=== PATIENT | male | born 1990 | race Caucasian/White ===

== ENCOUNTER 2020-01-09 18:11 | Emergency (ER) | payer BC, SELFPAY ==
[2020-01-09 18:22] VITALS: BP 131/79; PULSE 72; RESP 18; TEMP 36.2; O2SAT 97
--- NOTE | 2020-01-09 18:39 | ED.NAVMDI ---
HPI - Nausea/Vomiting/Diarrhea General Chief complaint: Nausea/Vomiting/Diarrhea Stated complaint: nausea, vomiting Source: patient Mode of arrival: ambulatory Limitations: no limitations History of Present Illness HPI Narrative: 29 y.o. has had nausea and vomiting since 5:30 AM today, vomiting at least x10. He feels antsy all over. He denies diarrhea, abdominal pain. He rarely drinks alcohol; had about 8 beers yesterday. Related Data Allergies Allergy/AdvReac Type Severity Reaction Status Date / Time No Known Allergies Allergy Verified 01/09/20 18:25 Review of Systems Constitutional: Constitutional: Denies chills and Denies fever(s) Cardiovascular: Cardiovascular: Denies chest pain Respiratory: Respiratory: Denies cough and Denies dyspnea Gastrointestinal: Gastrointestinal: Reports abdominal pain (some abd. discomfort after drinking large cup of water then vomiting. ) Genitourinary: Genitourinary: Denies dysuria Musculoskeletal: Musculoskeletal: Denies back pain Integumentary/Breasts: Skin/Breast: Denies rash [facility] Past Medical History Medical History (Updated 01/09/20 @ 19:31 by Bernard Dash MD) Patient denies significant medical history Social History Social History (Updated 01/09/20 @ 18:56 by Bernard Dash MD) Alcohol use details: occasional alcoholic beverage once a month. Exam Narrative: Exam Narrative: Walked in, upright Const: General: no acute distress and alert Orientation/consciousness: patient oriented x3 Eyes: Cornea: corneas normal Neck: Neck: no lymphadenopathy Chest: Chest palpation & inspection: normal inspection of the chest Resp: Auscultation: clear to auscultation bilaterally Cardio: Rate: regular rate Rhythm: regular rhythm GI: Inspection: non-distended GI Palp: Yes Soft to palpation and No Tenderness to palpation present (GI) Back/Spine/Pelvis: Back: no CVA tenderness Neuro: General: patient oriented x3 Psych: Appearance: grossly normal Mental Status: mental status grossly normal Course Course Emergency Course: After 1 liter of fluids nausea was gone, no longer felt antsy. Vital Signs Vital signs: Vital Signs Temperature 36.2 C L 01/09/20 18:22 Pulse Rate 72 01/09/20 18:22 Respiratory Rate 18 01/09/20 18:22 Blood Pressure 131/79 01/09/20 18:22 Pulse Oximetry 97 01/09/20 18:22 Temperature 36.2 C L 01/09/20 18:22 Pulse Rate 72 01/09/20 18:22 Respiratory Rate 18 01/09/20 18:22 Blood Pressure 153/78 H 01/09/20 19:43 Pulse Oximetry 97 01/09/20 18:22 MDM - Nausea/Vomiting/Diarrhea MDM Narrative Medical decision making narrative: Dehydration, appears to be alcohol ingestion. Minor elevation of WBC secondary to vomiting. Differential Diagnosis Differential diagnosis: Likely gastroenteritis, dehydration and other (hangover) Lab Data Attestation: I reviewed the patient's lab results. Result diagrams: 01/09/20 18:52 01/09/20 18:51 Labs: Lab Results 01/09/20 01/09/20 01/09/20 Range/Units 18:49 18:51 18:52 WBC 12.4 H (4.8-10.8) K/mm3 RBC 4.89 (4.70-6.10) M/mm3 Hgb 13.8 L (14.0-18.0) g/dL Hct 42.7 (40.0-54.0) % MCV 87.3 (78.0-102.0) fL MCH 28.2 (27.0-31.0) pg MCHC 32.3 (32.0-36.0) g/dL RDW 13.8 (11.6-14.4) % Plt Count 220 (150-420) K/mm3 MPV 11.2 H (8.7-11.0) fl Immature Gran % (Auto) 0.3 H (0.0-0.0) % Neut % (Auto) 87.1 H (50.0-70.0) % Lymph % (Auto) 8.8 L (18.0-42.0) % [place] % (Auto) 3.6 (2.0-11.0) % Eos % (Auto) 0.0 L (1.0-6.0) % Baso % (Auto) 0.2 (0.0-1.0) % Lymph # (Auto) 1.09 L (1.10-4.50) K/mm3 [place] # (Auto) 0.45 (0.10-0.90) K/mm3 Eos # (Auto) 0.00 L (0.02-0.50) K/mm3 Baso # (Auto) 0.02 (0.00-0.10) K/mm3 Abs Immat Gran (auto) 0.04 H (0.00-0.00) K/mm3 Absolute Neuts (auto) 10.8 H (1.7-7.2) K/mm3 Absolute Nucleated RBC 0.00 (0.00-0.00) K/mm3 Nucleated
[2020-01-09] MEDS: LACTATED RINGERS 1,000 ML 999 ML IV CONT (18:52)
[2020-01-09] MEDS: ONDANSETRON INJ 4 MG/2 ML VIAL IV PUSH (18:52)
[2020-01-09 18:57] LABS: Basophils Absolute Auto 0.02 K/mm3 (0.00-0.10); Basophils Percent Auto 0.2 % (0.0-1.0); Hematocrit 42.7 % (40.0-54.0); Hemoglobin 13.8 g/dL (14.0-18.0); Immature Granulocyte Absolute 0.04 K/mm3 (0.00-0.00); Immature Granulocyte Percent A 0.3 % (0.0-0.0); Lymphocytes Absolute Auto 1.09 K/mm3 (1.10-4.50); Lymphocytes Percent Auto 8.8 % (18.0-42.0); Mean Corpuscular HGB Conc 32.3 g/dL (32.0-36.0); Mean Corpuscular Hemoglobin 28.2 pg (27.0-31.0); Mean Corpuscular Volume 87.3 fL (78.0-102.0); Mean Platelet Volume 11.2 fl (8.7-11.0); Monocytes Absolute Auto 0.45 K/mm3 (0.10-0.90); Monocytes Percent Auto 3.6 % (2.0-11.0); Neutrophils Absolute Auto 10.8 K/mm3 (1.7-7.2); Neutrophils Percent Auto 87.1 % (50.0-70.0); Platelet Count Result 220 K/mm3 (150-420); Red Blood Count 4.89 M/mm3 (4.70-6.10); Red Cell Distribution Width 13.8 % (11.6-14.4); White Blood Count 12.4 K/mm3 (4.8-10.8)
[2020-01-09 18:59] LABS: Add Urine Microscopic? YES; Appearance Urine Sl Cloudy (Clear); Bilirubin Urine 1+ (Negative); Blood Urine Negative (Negative); Color Urine Yellow (Yellow); Glucose Urine UA Negative (Negative); Ketones Urine 1+ (Negative); Leukocyte Esterase Ur Negative (Negative); Nitrate Urine Negative (Negative); Protein Urine 1+ (Negative); Specific Grav Ur >= 1.030 (1.010-1.020); Urobilinogen Urine 0.2 mg/dL (0.2-1.0)
[2020-01-09 19:04] LABS: RBC Urine None seen /hpf (0-2); Squamous Epithelial Cell Urine None seen /hpf (Few); WBC Urine None seen /hpf (0-3)
[2020-01-09 19:05] LABS: Bacteria Urine None seen /hpf; Mucus Urine Moderate /lpf
[2020-01-09 19:13] LABS: Alanine Aminotransferase 26 U/L (16-63); Albumin Level 4.4 g/dL (3.4-5.0); Alkaline Phosphatase 79 U/L (46-116); Anion Gap 12.5 mmol/L (7-16); Aspartate Amino Transferase 24 U/L (15-37); Bilirubin,Total 0.4 mg/dL (0.00-1.00); Blood Urea Nitrogen 19 mg/dL (7-18); Calcium 9.2 mg/dL (8.5-10.1); Carbon Dioxide 29 mmol/L (21-32); Chloride 104 mmol/L (98-108); Estimated CRCL calculation 78 ml/min; Estimated Glomerular Filt Rate 60; Glucose 126 mg/dL (70-99); Lipase 28 U/L (73-393); Osmolality Calculated 296 mOsm/kg (285-295); Potassium 4.5 mmol/L (3.5-5.1); Sodium 141 mmol/L (136-145); Total Protein 7.8 g/dL (6.4-8.2)
[2020-01-09 19:43] VITALS: BP 153/78
== END 2020-01-09 19:40 | disposition home or self-care (01) ==
PROVIDERS: Emergency Provider Family Medicine
DX: E86.0 Dehydration (principal); R11.2 Nausea with vomiting, unspecified
CPT/HCPCS: 36415; 80053; 81001; 83690; 85025; 96361; 96374; 99283; 99284; J2405; J7120